=== PATIENT | female | born 1995 | race Two or more races ===

== ENCOUNTER 2016-06-29 11:11 | Emergency (ER) | payer OTHER ==
[2016-06-29 12:27] VITALS: BP 114/78; PULSE 85; TEMP 97.9; BMI 26.4
[2016-06-29] MEDS ORDERED: ONDANSETRON *ODT* 4 MG TABLET SL ONE (13:13)
[2016-06-29] MEDS ORDERED: ONDANSETRON *ODT* 4 MG TABLET ONE (13:16)
--- NOTE | 2016-06-29 13:19 | PDOC ---
History of Present Illness - General Chief Complaint: Cold Symptoms Stated Complaint: FLU Time Seen by Provider: 06/29/16 12:51 History Source: Patient Exam Limitations: No Limitations - History of Present Illness Initial Comments: 06/29/16 13:14 My Chief Complaint: body aches, vomiting, diarrhea, cough History of Present Illness: Pt. is a 21 y/o female with no significant history here today with 3 days of productive cough white phelgm, bodyaches, today has had 5 episodes of vomiting and brownish diarrhea once today. Pt. feels nauseous , denies SOB, wheezing or any chance of . Pt. got her influenza vaccine. She denies fever. 06/29/16 13:17 Timing/Duration: changing over time Severity: moderate Associated Symptoms: reports: cough, fever/chills, loss of appetite, nausea/ vomiting (today). denies: shortness of breath Past History - Past Medical History Allergies/Adverse Reactions: Allergies Allergy/AdvReac Type Severity Reaction Status Date / Time No Known Drug Allergies Allergy Verified 06/29/16 11:16 Home Medications: Ambulatory Orders Guaifenesin Dm [Mucinex Dm -] 1 tab PO Q12H PRN #10 tab.er.12h 06/29/16 Ondansetron [Zofran Odt -] 4 mg SL Q8H PRN #5 od.tablet MDD 3 06/29/16 Anemia: No Asthma: No Cancer: No Cardiac Disorders: No CVA: No COPD: No CHF: No Dementia: No Diabetes: No GI Disorders: No Disorders: No HTN: No Hypercholesterolemia: No Liver Disease: No Seizures: No Thyroid Disease: No - Surgical History Abdominal Surgery: No Appendectomy: No Cardiac Surgery: No Cholecystectomy: No Lung Surgery: No Neurologic Surgery: No Orthopedic Surgery: No - Reproductive History (#): 1 Para: 0 - Psycho/Social/Smoking Cessation Hx Anxiety: No Suicidal Ideation: No Smoking History: Never smoked Have you smoked in the past 12 months: No Information on smoking cessation initiated: No Hx Alcohol Use: No Drug/Substance Use Hx: No Substance Use Type: None Hx Substance Use Treatment: No Review of Systems - Review of Systems Able to Perform ROS?: Yes Constitutional: Yes: Chills HEENTM: Yes: Nose Congestion. No: Throat Pain Respiratory: Yes: Productive cough (white for 3 days). No: Cough, Shortness of Breath, SOB with Exertion, SOB at Rest, Stridor, Wheezing Cardiac (ROS): No: Symptoms Reported ABD/GI: No: Symptoms Reported : No: Symptoms Reported Musculoskeletal: No: Symptoms Reported Integumentary: No: Symptoms Reported Neurological: No: Symptoms reported *Physical Exam - Vital Signs Last Vital Signs Temp Pulse Resp BP Pulse Ox 97.9 F 85 19 114/78 100 06/29/16 11:13 06/29/16 11:13 06/29/16 11:13 06/29/16 11:13 06/29/16 11:13 - Physical Exam General Appearance: Yes: Appropriately Dressed HEENT: positive: TMs Normal, Nasal Congestion. negative: Pharyngeal Erythema, Tonsillar Exudate, Tonsillar Erythema, Rhinorrhea, Sinus Tenderness, Orbits Neck: negative: Lymphadenopathy (R), Lymphadenopathy (L) Respiratory/Chest: positive: Lungs Clear, Normal Breath Sounds. negative: Chest Tender, Respiratory Distress Cardiovascular: positive: Regular Rhythm, Regular Rate, S1, S2 Gastrointestinal/Abdominal: positive: Normal Bowel Sounds, Soft. negative: Tender, Organomegaly, Increased Bowel Sounds, Decreased BS, Distended, Guarding , Rebound, Tenderness Integumentary: positive: Normal Color Neurologic: positive: Alert, Normal Response, Responsive Medical Decision Making - Medical Decision Making 06/29/16 13:17 Pt. is a 21 y/o female with no significant history here today with 3 days of productive cough white phelgm, bodyaches, today has had 5 episodes of vomiting and brownish diarrhea once today. Pt. feels nauseous, denies SOB, wheezing or any chance of . Pt. got her influenza vaccine. She denies fever. 06/29/16 13:19 influenza like illness gastroenteritis PLAN: zofran 4 mg now than every 8 hrs prn nausea or vomiting # 5 follow up with [facility] mucinex DM 1 tab q12 hr prn cough for 5 days 06/29/16 13:55 Has been able to drink without vomiting will have her discharged to home 06/29/16 13:58 *DC/Admit/Observation/Transfer Diagnosis at time of Disposition: Acute gastroenteritis, Cough - Discharge Dispostion Disposition: HOME Condition at time of disposition: Stable - Patient Instructions Additional Instructions: Procedure primary care provider within the next few days Return to emergency room if symptoms worsen unable to hold down any fluids or any new symptoms develop Foods and fluids as tolerated Take acetaminophen as needed as directed by transformation analyst for body aches or fever Patient voiced understanding of discharge instructions and all questions were answered
== END 2016-06-29 14:00 | disposition home or self-care (01) ==
LOC: JERFT 11:11 → JER 11:11 → JERFT 14:00
DX: K52.9 Noninfective gastroenteritis and colitis, unspecified (principal); R05 Cough
CPT/HCPCS: 99281-25

== ENCOUNTER 2021-04-02 13:34 | Emergency (ER) | payer OTHER ==
[2021-04-02 13:43] VITALS: BP 105/65; PULSE 82; TEMP 99.1; BMI 27.4
[2021-04-02] MEDS ORDERED: ACETAMINOPHEN 325 MG TABLET (FP) PO ONE (14:13)
[2021-04-02] MEDS ORDERED: ACETAMINOPHEN 325 MG TABLET (FP) ONE (14:17)
== END 2021-04-02 14:38 | disposition home or self-care (01) ==
LOC: FER 13:34
DX: K40.90 Unilateral inguinal hernia, without obstruction or gangrene, not specified as recurrent (principal)
CPT/HCPCS: 99283-25

== ENCOUNTER 2023-07-13 18:31 | Emergency (ER) | payer OTHER ==
[2023-07-13 18:37] VITALS: BP 106/54; PULSE 78; RESP 18; TEMP 98.2; BMI 30.2
[2023-07-13] MEDS ORDERED: DIPHTH,PERTUSS(ACELL),TET 0.5 ML DISP.SYRIN IM ONE ×4 (20:19→20:53)
== END 2023-07-13 20:30 | disposition home or self-care (01) ==
LOC: JERFT 18:31
PROC: 0HQFXZZ Repair Right Hand Skin, External Approach (ICD-10-PCS; principal; 2023-07-13)
PROC: 3E0234Z Introduction of Serum, Toxoid and Vaccine into Muscle, Percutaneous Approach (ICD-10-PCS; 2023-07-13)
DX: S61.212A Laceration without foreign body of right middle finger without damage to nail, initial encounter (principal); W26.8XXA Contact with other sharp object(s), not elsewhere classified, initial encounter
CPT/HCPCS: 12001-25; 90471; 90715; 99282-25